=== PATIENT | male | born 1980 | race Caucasian/White ===

== ENCOUNTER 2023-02-15 11:11 | Day surgery (SDC) | payer OTHER ==
[2023-02-11 11:50] VITALS: BMI 25.7
[2023-02-15 11:27] VITALS: TEMP 97.5
[2023-02-15 12:57] VITALS: BP 108/59; PULSE 77; RESP 18
== END 2023-02-15 12:57 | disposition home or self-care (01) ==
LOC: FASU-ENDO 11:11
PROVIDERS: ATTEND Internal Medicine Gastroenterology
PROC: 0DBP8ZX Excision of Rectum, Via Natural or Artificial Opening Endoscopic, Diagnostic (ICD-10-PCS; principal; 2023-02-15 12:07)
DX: Z12.11 Encounter for screening for malignant neoplasm of colon (principal); K62.1 Rectal polyp; Z80.0 Family history of malignant neoplasm of digestive organs
CPT/HCPCS: 88305-TC